=== PATIENT | male | born 1980 | race Caucasian/White ===

== ENCOUNTER 2016-12-08 20:19 | Emergency (ER) | payer SELFPAY ==
[~2016-12-08] VITALS: Ht 170.2 cm; Wt 68.5 kg
[~2016-12-08 20:19] MED LIST: ACET500C5 PO; FAMO-96 PO; ONDA8TAB14 PO
[2016-12-08 20:24] VITALS: Ht 170.2 cm; Wt 68.5 kg
[2016-12-09] MEDS ORDERED: morphine 4 MG/ML VIAL IV STA (00:39)
[2016-12-09] MEDS ORDERED: ONDANSETRON 4 MG INJ IV STA (00:39)
[2016-12-09] MEDS ORDERED: SOD CHLORIDE 0.9% 1,000 ML IV STA (00:39)
--- NOTE | 2016-12-09 00:56 | ERD ---
ER Documentation Chief Complaint Date/Time DATE: 12/09/16 TIME: 00:43 Chief Complaint upper abd pain x 2 days HPI 36-year-old male presents here in emergency department for complaints of upper abdominal pain for 2 days radiating to the lower abdomen area sharp pain, 8/10 scale, accompanied with vomiting. Patient does not have any blood in the vomit. Patient does not have any blood in the stool or black stool. Patient does not have any diarrhea or constipation. Patient denies taking any medications to help symptoms. ROS All systems reviewed and are negative except as per history of present illness. Medications Home Meds Active Scripts Famotidine* (Pepcid*) 20 Mg Tablet, 20 MG PO BID, #20 TAB Prov:RANI BALTAZAR MD 01/02/16 Acetaminophen* (Tylophen*) 500 Mg Capsule, 1 CAP PO Q6H Y for PAIN AND OR ELEVATED TEMP, #20 CAP Prov:RANI BALTAZAR MD 01/02/16 Ondansetron (Ondansetron Odt) 8 Mg Tab.rapdis, 8 MG PO Q6H Y for NAUSEA AND/OR VOMITING, #10 TAB Prov:RANI BALTAZAR MD 01/02/16 Allergies Allergies: Coded Allergies: No Known Allergy (Unverified , 12/08/16) PMhx/Soc History of Surgery: No Anesthesia Reaction: No Hx Neurological Disorder: No Hx Respiratory Disorders: No Hx Cardiac Disorders: No Hx Psychiatric Problems: No Hx Miscellaneous Medical Probl: No Hx Alcohol Use: No Hx Substance Use: Yes (MARIJUANA) Hx Tobacco Use: No FmHx Family History: No coronary disease, No diabetes, No other Physical Exam Vitals Vital Signs Date Time Temp Pulse Resp B/P Pulse Ox O2 Delivery O2 Flow Rate FiO2 12/08/16 20:24 98.3 85 20 108/64 98 Physical Exam GENERAL: The patient is well developed and appropriate for usual state of health, in no apparent distress. CHEST: Clear to auscultation bilaterally. There are no rales, wheezes or rhonchi. HEART: Regular rate and rhythm. No murmurs, clicks, rubs or gallops. No S3 or S4. ABDOMEN: Soft, nontender and nondistended. Good bowel sounds. No rebound or guarding. No gross peritonitis. No gross organomegaly or masses. No Diana sign or McBurney point tenderness. BACK: No midline or flank tenderness. EXTREMITIES: Equal pulses bilaterally. There is no peripheral clubbing, cyanosis or edema. No focal swelling or erythema. Full range of motion. Grossly neurovascularly intact. NEURO: Alert and oriented. Cranial nerves 2-12 intact. Motor strength in all 4 extremities with 5/5 strength. Sensation grossly intact. Normal speech and gait. SKIN: There is no apparent rash or petechia. The skin is warm and dry. HEMATOLOGIC AND LYMPHATIC: There is no evidence of excessive bruising or lymphedema. No gross cervical, axillary, or inguinal lymphadenopathy. Result Diagram: 12/09/16 0110 12/09/16 0110 Results 24 hrs Laboratory Tests Test 12/09/16 01:00 12/09/16 01:10 Urine Color YELLOW Urine Clarity SLIGHTLY CLOUDY Urine pH 5.0 Urine Specific [place] 1.020 Urine Ketones 1+mg/dL Urine Nitrite NEGATIVEmg/dL Urine Bilirubin NEGATIVEmg/dL Urine Urobilinogen 1+mg/dL Urine Leukocyte Esterase NEGATIVELeu/ul Urine Microscopic RBC 1/HPF Urine Microscopic WBC 1/HPF Urine Mucus MANY/HPF Urine Hemoglobin NEGATIVEmg/dL Urine Glucose NEGATIVEmg/dL Urine Total Protein NEGATIVEmg/dl White Blood Count 8.210^3/ul Red Blood Count 4.5210^6/ul Hemoglobin 14.5g/dl Hematocrit 41.3% Mean Corpuscular Volume 91.4fl Mean Corpuscular Hemoglobin 32.1pg Mean Corpuscular Hemoglobin Concent 35.1g/dl Red Cell Distribution Width 11.9% Platelet Count 83717^3/UL Mean Platelet Volume 10.6fl Neutrophils % 53.9% Lymphocytes % 35.6% Monocytes % 7.3% Eosinophils % 2.3% Basophils % 0.5% Nucleated Red Blood Cells % 0.0/100WBC Neutrophils # (Manual) 4.410^3/ul Lymphocytes # 2.910^3/ul Monocytes # 0.610^3/ul Eosinophils # 0.210^3/ul Basophils # 0.010^3/ul Nucleated Red Blood Cells # 0.010^3/ul Sodium Level 140mmol/L Potassium Level 3.5mmol/L Chloride Level 103mmol/L Carbon Dioxide Level 27mmol/L Anion Gap 14 Blood Urea Nitrogen 10mg/dl Creatinine 0.71mg/dl Glucose Level 101mg/dl Calcium Level 9.8mg/dl Total Bilirubin 0.6mg/dl Direct Bilirubin 0.00mg/dl Indirect Bilirubin 0.6mg/dl Aspartate Amino Transf (AST/SGOT) 23IU/L Alanine Aminotransferase (ALT/SGPT) 56IU/L Alkaline Phosphatase 85IU/L Total Protein 7.7g/dl Albumin 4.5g/dl Globulin 3.20g/dl Albumin/Globulin Ratio 1.40 Lipase 84U/L Current Medications Medications (Trade) Dose Ordered Sig/[place] Route PRN Reason Start Time Stop Time Status Last Admin Dose Admin Sodium Chloride (NS) 1,000 ml @ 1,000 mls/hr Q1H STAT IV 12/09/16 00:39 12/09/16 01:38 DC 12/09/16 01:17 Morphine Sulfate (morphine) 4 mg ONCE STAT IV 12/09/16 00:39 12/09/16 00:40 DC 12/09/16 01:15 Ondansetron HCl 4 mg 4 mg ONCE STAT IV 12/09/16 00:39 12/09/16 00:40 DC 12/09/16 01:14 Sodium Chloride (NS) 100 ml @ ud STK-MED ONCE .ROUTE 12/09/16 02:38 12/09/16 02:39 DC 12/09/16 03:07 Iohexol (Omnipaque 300mg/ ml) 150 ml STK-MED ONCE .ROUTE 12/09/16 02:38 12/09/16 02:39 DC 12/09/16 03:07 Patient was given medication for pain here in emergency department, after treatment, patient verbalized feeling much better. Patient's pain is improved.Patient was given Zofran here in the emergency department. After treatment, patient was able to tolerate po fluids here in the emergency department without any vomiting. There is no signs and symptoms of dehydration. Normal saline IV bolus was given here in emergency department for rehydration, patient tolerated IV fluids. PROCEDURE: CT Abdomen and pelvis with contrast CLINICAL INDICATION: abd pain TECHNIQUE: Spiral CT images through the abdomen and pelvis without administration of oral and during intravenous administration of 100 cc of Omnipaque 350 contrast material. Multiplanar reconstructions. The total exam CTDI equals 9.7 mGy and the total exam DLP equals 590.29 mGy-cm. One or more of the following dose reduction techniques were used: automated exposure control, adjustment of the mA and/or kV according to patient size, or use of iterative reconstruction technique. COMPARISON: 01/02/2016 FINDINGS: There is bilateral dependent, basilar atelectasis and no pleural or pericardial effusion is seen.. The liver, spleen, adrenals, and pancreas are unremarkable in appearance.. The kidneys are normal in size and contour. A 2.5 cm hypodense cortical lesion in the upper pole of the left kidney with small peripheral calcifications and thin septation is again visualized. There is no evidence of obstructive uropathy. Symmetric renal enhancement is demonstrated. The aorta is normal in caliber. No adenopathy or ascites is seen. There is no evidence for bowel obstruction, free air, or abscess. The appendix is normal. There is colonic diverticulosis without evidence of acute diverticulitis. The bladder is distended. The prostate gland is normal. The osseous structures are intact. IMPRESSION: No definite acute abnormality of the abdomen or pelvis. 2.5 cm complex left upper pole renal cyst, Bosniak category II. RPTAT: HCNS Physician Prince Date Time Electronically viewed and signed by Physician Prince on 12/09/2016 03: 30 CS/ CC: BETZAIDA MUNGUIA [employer]UM TENDER Procedures/MDM Medical Decision Making: Patient's pain most likely consistent with gastritis, no symptoms of any bowel perforation, no symptoms or any other acute abdominal emergencies. The liver function tests are normal, lipase normal, no suspicion for acute cholecystitis or choledocholithiasis. No suspicion for any pancreatitis. There is low suspicion for abdominal emergencies at this time. Patients abdominal exam is normal at this time. Patients radiology exam does not show any abdominal emergencies at this time. There is low suspicion for appendicitis, cholecystitis, abdominal aortic aneurysms or peritonitis at this time. There is low suspicion for sepsis. Patient appears well and is hemodynamically stable. Disposition: Home. Condition: Stable Prescription [place], omeprazole, Zofran, Mylanta Instructions: Patient is advised to take medications as prescribed. Patient is advised to rest, increase fluid intake and do brat diet for next 1-2 days and progress as tolerated. Patient is advised that if symptoms are worse, severe abdominal pain, uncontrolled vomiting, high fever, severe flank pain, worst signs and symptoms, to return to the emergency department immediately. Otherwise, patient can follow up with primary care doctor in 5-7 days. Departure Diagnosis: Primary Impression: Abdominal pain Abdominal location: epigastric Qualified Code: R10.13 - Epigastric pain Condition: Stable Patient Instructions: Abdominal Pain, Gastritis (Adult) Additional Instructions: Patient is advised to take medications as prescribed. Patient is advised to rest , increase fluid intake and do brat diet for next 1-2 days and progress as tolerated. Patient is advised that if symptoms are worse, severe abdominal pain , uncontrolled vomiting, high fever, severe flank pain, worst signs and symptoms , to return to the emergency department immediately. Otherwise, patient can follow up with primary care doctor in 5-7 days. BETZAIDA MUNGUIA NP Dec 09, 2016 00:54
[2016-12-09 01:21] LABS: ADD UMIC NO; UR ASCORBIC ACID 40 mg/dL (NEGATIVE); UR BILIRUBIN (Dip) NEGATIVE (NEGATIVE); UR BLOOD (Dip) NEGATIVE (NEGATIVE); UR CLARITY SLIGHTLY CLOUDY (CLEAR); UR COLOR YELLOW (YELLOW); UR GLUCOSE (Dip) NEGATIVE (NEGATIVE); UR KETONES (Dip) 1+ mg/dL (NEGATIVE); UR LEUKOCYTE ESTERASE (Dip) NEGATIVE Leu/ul (NEGATIVE); UR MUCUS MANY /HPF (NONE SEEN); UR NITRITE (Dip) NEGATIVE (NEGATIVE); UR RBC 1 /HPF (0-5); UR TOTAL PROTEIN (Dip) NEGATIVE (NEGATIVE); UR UROBILINOGEN (Dip) 1+ mg/dL (NEGATIVE)
[2016-12-09 01:35] LABS: BASOPHILS % 0.5 % (0.0-2.0); EOSINOPHILS # 0.2 10^3/ul (0.0-0.5); EOSINOPHILS % 2.3 % (0.0-7.0); HEMATOCRIT 41.3 % (42.0-52.0); HEMOGLOBIN 14.5 g/dl (14.0-18.0); LYMPHOCYTES # 2.9 10^3/ul (0.8-2.9); LYMPHOCYTES % 35.6 % (15.0-51.0); MEAN CORPUSCULAR HEMOGLOBIN 32.1 pg (29.0-33.0); MEAN CORPUSCULAR HGB CONC 35.1 g/dl (32.0-37.0); MEAN CORPUSCULAR VOLUME 91.4 fl (82.0-101.0); MEAN PLATELET VOLUME 10.6 fl (7.4-10.4); MONOCYTE # 0.6 10^3/ul (0.3-0.9); MONOCYTES % 7.3 % (0.0-11.0); NEUTROPHILS % 53.9 % (39.0-77.0); PLATELET COUNT 290 10^3/UL (140-415); RED BLOOD COUNT 4.52 10^6/ul (4.70-6.10); RED CELL DISTRIBUTION WIDTH 11.9 % (11.5-14.5); WHITE BLOOD COUNT 8.2 10^3/ul (4.8-10.8)
[2016-12-09 01:51] LABS: ALBUMIN 4.5 g/dl (3.3-4.9); ALBUMIN/GLOBULIN RATIO 1.4; BILIRUBIN,INDIRECT 0.6 mg/dl (0-1.1); BILIRUBIN,TOTAL 0.6 mg/dl (0.2-1.3); CALCIUM 9.8 mg/dl (8.4-10.2); CREATININE 0.71 mg/dl (0.61-1.24); POTASSIUM 3.5 mmol/L (3.5-5.1); TOTAL PROTEIN 7.7 g/dl (6.1-8.1)
[2016-12-09] MEDS ORDERED: SOD CHLORIDE 0.9% 100 ML ONE (02:38)
[2016-12-09] MEDS ORDERED: IOHEXOL 300MG/ML 150 ML BTL ONE (02:38)
--- NOTE | 2016-12-09 03:31 | RADRPT ---
PROCEDURE: CT Abdomen and pelvis with contrast CLINICAL INDICATION: abd pain TECHNIQUE: Spiral CT images through the abdomen and pelvis without administration of oral and duri ng intravenous administration of 100 cc of Omnipaque 350 contrast material. Multiplanar reconstruct ions. The total exam CTDI equals 9.7 mGy and the total exam DLP equals 590.29 mGy-cm. One or more of the following dose reduction techniques were used: automated exposure control, adjust ment of the mA and/or kV according to patient size, or use of iterative reconstruction technique. COMPARISON: 01/02/2016 FINDINGS: There is bilateral dependent, basilar atelectasis and no pleural or pericardial effusion is seen.. The liver, spleen, adrenals, and pancreas are unremarkable in appearance.. The kidneys are normal in size and contour. A 2.5 cm hypodense cortical lesion in the upper pole of the left kidney with smal l peripheral calcifications and thin septation is again visualized. There is no evidence of obstruct iban uropathy. Symmetric renal enhancement is demonstrated. The aorta is normal in caliber. No adeno oliver or ascites is seen. There is no evidence for bowel obstruction, free air, or abscess. The eliot endix is normal. There is colonic diverticulosis without evidence of acute diverticulitis. The bladd er is distended. The prostate gland is normal. The osseous structures are intact. IMPRESSION: No definite acute abnormality of the abdomen or pelvis. 2.5 cm complex left upper pole renal cyst, Bosniak category II. RPTAT: HCNS Physician Prince Date Time Electronically viewed and signed by Physician Prince on 12/09/2016 03:30 CS/
[2016-12-09] MEDS ORDERED: MAG-19 PO (03:50)
[2016-12-09] MEDS ORDERED: OMEP20CA16 PO (03:50)
[2016-12-09] MEDS ORDERED: HYDR-906 PO (03:50)
[2016-12-09] MEDS ORDERED: ONDA4TAB14 PO (03:50)
[2016-12-09] MEDS ORDERED: LIDOCAINE/MYLANTA 40 ML BTL PO ONE (04:00)
[2016-12-09] MEDS ORDERED: FAMOTIDINE 20 MG INJ IV ONE (04:00)
[2016-12-09 04:20] VITALS: BP 133/87; PULSE 71; RESP 16
== END 2016-12-09 04:25 | disposition home or self-care (01) ==
LOC: FTE 20:19
DX: R10.13 Epigastric pain (principal)
CPT/HCPCS: 36415; 74177; 80053; 81001; 83690; 85025; 96374; 96375; 99285; J2270; J2405; J7030; Q9967; 81003